=== PATIENT | female | born 1955 | race Caucasian/White ===

== ENCOUNTER 2016-05-19 22:02 | Inpatient (IN) | payer OTHER ==
[~2016-05-19] VITALS: Ht 160 cm; Wt 86.7 kg
[~2016-05-19 22:02] MED LIST: ALTOPREV40 MG PO; CLARITIN,ALAVAR10 MG PO; CLOPIDOGREL75 MG PO; FENOFIBRATE145 M1 PO; GLUCOPHAGE1000 MG PO; HYDROCHLOROTH12.5 M3 PO; LEVEMIR FL100 UNIT/1 SC; LEVEMIR100 UNIT/2 SC; LO-DOSE ASPIRIN81 M1 PO; METOPROLOL SUCC50 MG PO; MOTRIN800 MG PO; NOVOLOG 10100 UNITS/ SC; NOVOLOG PE100 UNITS/ SC; REGLAN10 MG PO; SANTYL30 GM TP; SINGULAIR10 MG PO; SYNTHROID75 MCG PO; TOPROL XL25 MG PO; VASOTEC20 MG PO; ZANTAC150 MG PO
[2016-05-19 22:23] LABS: POINT-OF-CARE METER ID UU13113778
[2016-05-19 23:24] LABS: HEMATOCRIT 34.9 % (36.0-46.0); MCHC 34.4 G/DL (30.0-36.0); MCV 78.4 FL (83-99); MEAN PLAT.VOLUME 11.9 uM^3 (9.5-12.4); PLATELET COUNT 272 K/uL (156-360); RBC DIS.WIDTH-CV 13.2 % (11.8-14.6); RBC DIS.WIDTH-SD 36.8 % (39-53); RED BLOOD COUNT 4.45 M/uL (3.80-5.20); WHITE BLOOD COUNT 13.4 K/uL (4.1-10.2)
[2016-05-19 23:44] LABS: TROP-I INTERPRETATION NEGATIVE; TROPONIN-I < 0.01 ng/mL (0.0-0.30)
[2016-05-20 00:24] LABS: CHLORIDE 97 mEq/L (99-109); POTASSIUM 4.3 mEq/L (3.7-5.4); SODIUM 133 mEq/L (136-147)
[2016-05-20 00:26] LABS: GLUCOSE 296 mg/dL (70-99)
[2016-05-20 00:28] LABS: ANION GAP 10 MEQ/L (2-14); TOTAL BILIRUBIN 0.2 mg/dL (0.0-1.0)
[2016-05-20 00:30] LABS: ALKALINE PHOSPHATASE 49 IU/L (3-129); GFR ESTIMATE (CALCULATED) 49 mL/min/
[2016-05-20 00:31] LABS: UREA NITROGEN (BUN) 16 mg/dL (9-23)
[2016-05-20 00:33] LABS: LIPASE 89 U/L (1.0-51.0)
[2016-05-20 02:43] LABS: POINT-OF-CARE METER ID UU13113702
[2016-05-20 05:26] LABS: POINT-OF-CARE METER ID UU13113675
[2016-05-20 12:11] LABS: POINT-OF-CARE METER ID UU13113675
[2016-05-20 13:13] VITALS: BP 147/66
[2016-05-20 15:52] VITALS: BP 153/65
[2016-05-20 16:34] LABS: POINT-OF-CARE METER ID UU14149397
[2016-05-20 19:37] VITALS: BP 148/68
[2016-05-21 00:38] VITALS: BP 177/70
[2016-05-21 01:51] LABS: POINT-OF-CARE METER ID UU14149397
[2016-05-21 05:56] LABS: MCH 26.6 PG (29.0-34.0); MCHC 32.7 G/DL (30.0-36.0); MCV 81.3 FL (83-99); MEAN PLAT.VOLUME 12.4 uM^3 (9.5-12.4); PLATELET COUNT 262 K/uL (156-360); RBC DIS.WIDTH-CV 14.3 % (11.8-14.6); RBC DIS.WIDTH-SD 42.3 % (39-53); RED BLOOD COUNT 3.69 M/uL (3.80-5.20); WHITE BLOOD COUNT 16.6 K/uL (4.1-10.2)
[2016-05-21 06:10] LABS: ANION GAP 9 MEQ/L (2-14); CHLORIDE 100 MEQ/L (99-109); GFR ESTIMATE (CALCULATED) 49 mL/min/; GLUCOSE 208 mg/dL (70-99); POTASSIUM 3.6 MEQ/L (3.7-5.4); SAMPLE HEMOLYSIS CHECK 0; SAMPLE ICTERIC CHECK 0; SAMPLE LIPEMIA CHECK 0; SODIUM 135 MEQ/L (136-147); UREA NITROGEN (BUN) 19 mg/dL (9-23)
[2016-05-21 07:01] LABS: POINT-OF-CARE METER ID UU14149397
[2016-05-21 08:00] VITALS: BP 139/61
[2016-05-21 11:43] LABS: POINT-OF-CARE METER ID UU14149397
[2016-05-21 16:15] VITALS: BP 130/61
[2016-05-21 17:51] LABS: POINT-OF-CARE METER ID UU13113717
[2016-05-21 20:01] VITALS: BP 145/60
[2016-05-21 23:30] VITALS: BP 176/73
[2016-05-21 23:57] LABS: POINT-OF-CARE METER ID UU13113717
[2016-05-22 03:33] VITALS: BP 158/74
[2016-05-22 05:18] LABS: HEMATOCRIT 26.6 % (36.0-46.0); MCH 26.8 PG (29.0-34.0); MCHC 33.1 G/DL (30.0-36.0); MCV 81.1 FL (83-99); MEAN PLAT.VOLUME 12.5 uM^3 (9.5-12.4); PLATELET COUNT 203 K/uL (156-360); RBC DIS.WIDTH-CV 13.7 % (11.8-14.6); RBC DIS.WIDTH-SD 39.4 % (39-53); RED BLOOD COUNT 3.28 M/uL (3.80-5.20); WHITE BLOOD COUNT 11.9 K/uL (4.1-10.2)
[2016-05-22 05:33] LABS: CHLORIDE 104 mEq/L (99-109); POTASSIUM 3.9 mEq/L (3.7-5.4); SODIUM 135 mEq/L (136-147)
[2016-05-22 05:34] LABS: GLUCOSE 200 mg/dL (70-99)
[2016-05-22 05:36] LABS: ANION GAP 5 MEQ/L (2-14)
[2016-05-22 05:38] LABS: GFR ESTIMATE (CALCULATED) 54 mL/min/
[2016-05-22 05:39] LABS: UREA NITROGEN (BUN) 14 mg/dL (9-23)
[2016-05-22 06:04] LABS: POINT-OF-CARE METER ID UU13113717
[2016-05-22 07:42] VITALS: BP 160/69
[2016-05-22 15:35] VITALS: BP 140/78
[2016-05-22 22:51] LABS: POINT-OF-CARE METER ID UU14188577
[2016-05-23] VITALS: BP 155/66
[2016-05-23 09:08] VITALS: BP 170/78
[2016-05-23 15:46] VITALS: BP 180/80
[2016-05-23 17:04] LABS: POINT-OF-CARE METER ID UU14188577
[2016-05-23 20:01] VITALS: BP 152/82
[2016-05-23 22:00] LABS: POINT-OF-CARE METER ID UU14188577
[2016-05-23 23:34] VITALS: BP 150/76
[2016-05-24 07:54] VITALS: BP 150/79
[2016-05-24 12:05] LABS: POINT-OF-CARE METER ID UU14188577
[2016-05-24 12:55] VITALS: BP 179/77
[2016-05-24 16:09] VITALS: BP 140/70
[2016-05-24 16:52] LABS: POINT-OF-CARE METER ID UU14188577
[2016-05-24 21:49] LABS: POINT-OF-CARE METER ID UU14188577
[2016-05-24 23:25] VITALS: BP 146/71
[2016-05-25 04:00] VITALS: BP 148/74
[2016-05-25 06:54] LABS: POINT-OF-CARE METER ID UU14149397
[2016-05-25 07:47] LABS: HEMATOCRIT 26.8 % (36.0-46.0); MCH 26.9 PG (29.0-34.0); MCHC 33.6 G/DL (30.0-36.0); MCV 80.2 FL (83-99); MEAN PLAT.VOLUME 11.8 uM^3 (9.5-12.4); PLATELET COUNT 263 K/uL (156-360); RBC DIS.WIDTH-CV 14.1 % (11.8-14.6); RBC DIS.WIDTH-SD 40.8 % (39-53); RED BLOOD COUNT 3.34 M/uL (3.80-5.20); WHITE BLOOD COUNT 10.3 K/uL (4.1-10.2)
[2016-05-25 08:06] VITALS: BP 152/84
[2016-05-25 11:51] VITALS: BP 138/68
[2016-05-25 11:55] LABS: POINT-OF-CARE METER ID UU14149397
[2016-05-25 15:39] VITALS: BP 168/70
[2016-05-25] MEDS ORDERED: TYLENOL REGULA325 MG PO (15:53)
[2016-05-25] MEDS ORDERED: FLORASTOR250 MG PO (15:56)
[2016-05-25] MEDS ORDERED: AUGMENTIN875 MG PO (15:56)
[2016-05-25 16:47] LABS: POINT-OF-CARE METER ID UU14149397
[2016-05-25 22:00] LABS: POINT-OF-CARE METER ID UU14188577
== END 2016-05-25 22:37 | disposition home or self-care (01) | DRG 340 ==
LOC: EME 22:02 → SDC 05-20 03:25 → 3EAST 05-20 05:05 → 2SOUTH 05-20 05:05 → 3EAST 05-20 12:47
PROVIDERS: Emergency Medicine; Thoracic Surgery (Cardiothoracic Vascular Surgery)
PROC: 0DTJ0ZZ Resection of Appendix, Open Approach (ICD-10-PCS; principal; 2016-05-20)
DX: K35.2 Acute appendicitis with generalized peritonitis (principal); E11.9 Type 2 diabetes mellitus without complications; I10 Essential (primary) hypertension
CPT/HCPCS: 71020; 74177; 80048; 80053; 81003; 82565; 82948; 83690; 84484; 84520; 85027; 87070; 87075; 87076; 87106; 87185; 87205; 88304; 93005; 94799; 97530 GP; 99281; 99285; J0330; J1100; J1170; J1644; J1815; J2405; J2543; J2550; J2710; J2765; J3010; J7030; J7050; J7120

== ENCOUNTER 2016-05-30 23:32 | Inpatient (IN) | payer OTHER ==
[~2016-05-30] VITALS: Ht 157.5 cm; Wt 87.4 kg
[~2016-05-30 23:32] MED LIST changes: +AUGMENTIN875 MG PO; +FLORASTOR250 MG PO; +TYLENOL REGULA325 MG PO
[2016-05-31] VITALS (8 sets, daily range): BP systolic 142–200; BP diastolic 59–88
[2016-05-31 00:29] LABS: HEMATOCRIT 29.4 % (36.0-46.0); MCH 26.6 PG (29.0-34.0); MCHC 33.7 G/DL (30.0-36.0); MEAN PLAT.VOLUME 11.8 uM^3 (9.5-12.4); PLATELET COUNT 399 K/uL (156-360); RBC DIS.WIDTH-CV 13.9 % (11.8-14.6); RBC DIS.WIDTH-SD 38.6 % (39-53); RED BLOOD COUNT 3.72 M/uL (3.80-5.20); WHITE BLOOD COUNT 25.9 K/uL (4.1-10.2)
[2016-05-31 00:36] LABS: CHLORIDE 98 mEq/L (99-109); POTASSIUM 3.6 mEq/L (3.7-5.4); SODIUM 132 mEq/L (136-147)
[2016-05-31 00:39] LABS: GLUCOSE 224 mg/dL (70-99)
[2016-05-31 00:40] LABS: ANION GAP 10 MEQ/L (2-14)
[2016-05-31 00:42] LABS: ALKALINE PHOSPHATASE 94 IU/L (3-129); GFR ESTIMATE (CALCULATED) > 59 mL/min/
[2016-05-31 00:43] LABS: UREA NITROGEN (BUN) 11 mg/dL (9-23)
[2016-05-31 00:49] LABS: LIPASE 8 U/L (1.0-51.0)
[2016-05-31 00:50] LABS: TOTAL BILIRUBIN 0.6 mg/dL (0.0-1.0)
[2016-05-31 02:03] LABS: ADD MIUA? YES; BILIRUBIN NEGATIVE; BLOOD NEGATIVE; COLOR YELLOW ((YELLOW)); GLUCOSE (STRIP) 50; KETONES NEGATIVE; LEUKOCYTES NEGATIVE; NITRITE NEGATIVE; PROTEIN (STRIP) >=500
[2016-05-31 02:19] LABS: BACTERIA RARE /HPF; EPITHELIAL CELLS 1+ /HPF; HYALINE CASTS 0-5 /LPF; MUCUS 1+ /LPF; RED BLOOD CELLS 0-5 /HPF (0-5); UCUL ADDED? NO; WHITE BLOOD CELLS 0-5 /HPF (0-5)
[2016-05-31 09:10] LABS: INTER. NORMALIZED RATIO 1.2; PROTHROMBIN TIME 11.9 (9.2-11.2); PTT 32.9 (25-32)
[2016-06-01] VITALS: BP 136/66
[2016-06-01 04:00] VITALS: BP 144/68
[2016-06-01 07:43] LABS: EOSINOPHIL (%) 0.1 % (0-5); HEMATOCRIT 24.6 % (36.0-46.0); IMMATURE GRANULOCYTE (%) 0.4 % (0.0-0.7); IMMATURE GRANULOCYTE COUNT 0.1 K/uL; LYMPHOCYTE COUNT 1.5 K/uL (1.0-2.8); MCH 26.2 PG (29.0-34.0); MCHC 33.3 G/DL (30.0-36.0); MCV 78.6 FL (83-99); MEAN PLAT.VOLUME 11.8 uM^3 (9.5-12.4); MONOCYTE (%) 6.4 % (3-12); MONOCYTE COUNT 1.5 K/uL (0-0.8); NEUTROPHIL (%) 86.4 % (45-76); PLATELET COUNT 378 K/uL (156-360); RBC DIS.WIDTH-CV 14.3 % (11.8-14.6); RBC DIS.WIDTH-SD 41.1 % (39-53); RED BLOOD COUNT 3.13 M/uL (3.80-5.20); WHITE BLOOD COUNT 23.1 K/uL (4.1-10.2)
[2016-06-01 08:12] VITALS: BP 183/74
[2016-06-01 12:11] VITALS: BP 180/74
[2016-06-01 15:35] VITALS: BP 182/75
[2016-06-01 22:50] VITALS: BP 168/69
[2016-06-02 07:50] LABS: HEMATOCRIT 23.8 % (36.0-46.0); MCH 26.7 PG (29.0-34.0); MCHC 33.6 G/DL (30.0-36.0); MCV 79.3 FL (83-99); MEAN PLAT.VOLUME 12.4 uM^3 (9.5-12.4); PLATELET COUNT 384 K/uL (156-360); RBC DIS.WIDTH-CV 14.3 % (11.8-14.6); RBC DIS.WIDTH-SD 41.5 % (39-53)
[2016-06-02 07:51] LABS: WHITE BLOOD COUNT 15.6 K/uL (4.1-10.2)
[2016-06-02 08:03] LABS: ANION GAP 11 MEQ/L (2-14); CHLORIDE 97 MEQ/L (99-109); GFR ESTIMATE (CALCULATED) > 59 mL/min/; GLUCOSE 171 mg/dL (70-99); POTASSIUM 3.8 MEQ/L (3.7-5.4); SAMPLE HEMOLYSIS CHECK 0; SAMPLE ICTERIC CHECK 0; SAMPLE LIPEMIA CHECK 0; SODIUM 133 MEQ/L (136-147); UREA NITROGEN (BUN) 13 mg/dL (9-23)
[2016-06-02 08:26] VITALS: BP 179/76
[2016-06-03 00:18] VITALS: BP 144/74
[2016-06-03 03:10] VITALS: BP 167/69
[2016-06-03 07:12] VITALS: BP 180/68
[2016-06-03 08:04] LABS: GFR ESTIMATE (CALCULATED) > 59 mL/min/
[2016-06-03 11:06] LABS: HEMATOCRIT 24.3 % (36.0-46.0); MCH 26.6 PG (29.0-34.0); MCHC 33.3 G/DL (30.0-36.0); MCV 79.7 FL (83-99); MEAN PLAT.VOLUME 12.1 uM^3 (9.5-12.4); PLATELET COUNT 407 K/uL (156-360); RBC DIS.WIDTH-CV 14.4 % (11.8-14.6); RBC DIS.WIDTH-SD 41.7 % (39-53); RED BLOOD COUNT 3.05 M/uL (3.80-5.20); WHITE BLOOD COUNT 12.3 K/uL (4.1-10.2)
[2016-06-03 11:24] LABS: ANION GAP 8 MEQ/L (2-14); CHLORIDE 98 MEQ/L (99-109); GLUCOSE 199 mg/dL (70-99); POTASSIUM 3.8 MEQ/L (3.7-5.4); SODIUM 134 MEQ/L (136-147); UREA NITROGEN (BUN) 9 mg/dL (9-23)
[2016-06-03 16:00] VITALS: BP 160/78
[2016-06-03 20:00] VITALS: BP 152/76
[2016-06-03 23:55] VITALS: BP 162/74
[2016-06-04 03:50] VITALS: BP 142/54
[2016-06-04 06:57] VITALS: BP 188/78
[2016-06-04 07:24] LABS: HEMATOCRIT 27.2 % (36.0-46.0); MCH 25.2 PG (29.0-34.0); MCV 78.8 FL (83-99); MEAN PLAT.VOLUME 11.6 uM^3 (9.5-12.4); PLATELET COUNT 488 K/uL (156-360); RBC DIS.WIDTH-CV 14.1 % (11.8-14.6); RBC DIS.WIDTH-SD 40.7 % (39-53); RED BLOOD COUNT 3.45 M/uL (3.80-5.20); WHITE BLOOD COUNT 12.2 K/uL (4.1-10.2)
[2016-06-04 07:42] LABS: ANION GAP 11 MEQ/L (2-14); CHLORIDE 96 MEQ/L (99-109); GFR ESTIMATE (CALCULATED) > 59 mL/min/; GLUCOSE 193 mg/dL (70-99); POTASSIUM 3.7 MEQ/L (3.7-5.4); SAMPLE HEMOLYSIS CHECK 0; SAMPLE ICTERIC CHECK 0; SAMPLE LIPEMIA CHECK 0; SODIUM 134 MEQ/L (136-147); UREA NITROGEN (BUN) 7 mg/dL (9-23)
[2016-06-04 15:29] VITALS: BP 142/61
[2016-06-04 23:53] VITALS: BP 142/66
[2016-06-05 05:01] LABS: C DIFF TOXIN NEGATIVE (NEGATIVE)
[2016-06-05 05:06] LABS: PROBE CHECK PASS; SPECIMEN PROCESSING CONTROL PASS
[2016-06-05 07:25] VITALS: BP 156/72
[2016-06-05 12:27] LABS: HEMATOCRIT 25.6 % (36.0-46.0); MCH 26.3 PG (29.0-34.0); MCHC 32.8 G/DL (30.0-36.0); MCV 80.3 FL (83-99); MEAN PLAT.VOLUME 11.7 uM^3 (9.5-12.4); PLATELET COUNT 458 K/uL (156-360); RBC DIS.WIDTH-CV 14.4 % (11.8-14.6); RBC DIS.WIDTH-SD 41.7 % (39-53); RED BLOOD COUNT 3.19 M/uL (3.80-5.20); WHITE BLOOD COUNT 12.3 K/uL (4.1-10.2)
[2016-06-05 13:25] LABS: ABS NEUTROPHIL COUNT 7.84; ANISOCYTOSIS OCC; EOSINOPHIL (%) 2.4 % (0-5); EOSINOPHIL ABS CT 0.49; EOSINOPHIL COUNT 0.3 K/uL (0-0.3); IMMATURE GRANULOCYTE (%) 5.3 % (0.0-0.7); IMMATURE GRANULOCYTE COUNT 0.7 K/uL; LYMPHOCYTE COUNT 1.8 K/uL (1.0-2.8); MACROCYTES OCC; MONOCYTE (%) 8.4 % (3-12); NEUTROPHIL (%) 68.8 % (45-76); NEUTROPHIL COUNT 8.4 K/uL (1.8-6.4); PLAT.SUFFICIENCY INCREASED
[2016-06-05 15:02] VITALS: BP 150/70
[2016-06-05 23:31] VITALS: BP 150/86
[2016-06-06 07:00] VITALS: BP 158/72
[2016-06-06 08:15] LABS: HEMATOCRIT 27.8 % (36.0-46.0); MCH 26.4 PG (29.0-34.0); MCHC 33.1 G/DL (30.0-36.0); MCV 79.9 FL (83-99); MEAN PLAT.VOLUME 11.6 uM^3 (9.5-12.4); PLATELET COUNT 495 K/uL (156-360); RBC DIS.WIDTH-CV 14.5 % (11.8-14.6); RED BLOOD COUNT 3.48 M/uL (3.80-5.20); WHITE BLOOD COUNT 12.6 K/uL (4.1-10.2)
[2016-06-06 15:40] VITALS: BP 148/68
[2016-06-06 16:25] VITALS: BP 129/61
[2016-06-06 23:30] VITALS: BP 128/73
[2016-06-07 07:25] VITALS: BP 148/60
[2016-06-07 12:20] VITALS: BP 168/78
[2016-06-07 15:40] VITALS: BP 148/70
[2016-06-07 23:16] VITALS: BP 160/70
[2016-06-08 06:53] LABS: HEMATOCRIT 27.5 % (36.0-46.0); MCH 25.3 PG (29.0-34.0); MCHC 31.3 G/DL (30.0-36.0); MCV 80.9 FL (83-99); MEAN PLAT.VOLUME 11.1 uM^3 (9.5-12.4); PLATELET COUNT 476 K/uL (156-360); RBC DIS.WIDTH-CV 14.6 % (11.8-14.6); RBC DIS.WIDTH-SD 42.9 % (39-53); WHITE BLOOD COUNT 9.1 K/uL (4.1-10.2)
[2016-06-08 08:08] VITALS: BP 160/68
[2016-06-08 12:05] VITALS: BP 134/60
[2016-06-08 15:15] VITALS: BP 158/60
[2016-06-09 00:01] VITALS: BP 122/48; BP 1228/48
[2016-06-09 07:56] VITALS: BP 194/72
[2016-06-09 14:10] VITALS: BP 156/82
[2016-06-09 16:38] LABS: POINT-OF-CARE METER ID UU13113675
[2016-06-09 18:35] VITALS: BP 135/57
[2016-06-09 19:25] VITALS: BP 138/62
[2016-06-09 23:03] VITALS: BP 145/65
[2016-06-10 04:12] VITALS: BP 128/64
[2016-06-10 06:46] LABS: POINT-OF-CARE METER ID UU14162508
[2016-06-10 07:40] LABS: ANION GAP 7 MEQ/L (2-14); CHLORIDE 102 MEQ/L (99-109); GFR ESTIMATE (CALCULATED) > 59 mL/min/; GLUCOSE 175 mg/dL (70-99); SAMPLE HEMOLYSIS CHECK 0; SAMPLE ICTERIC CHECK 0; SAMPLE LIPEMIA CHECK 0; SODIUM 136 MEQ/L (136-147); UREA NITROGEN (BUN) 9 mg/dL (9-23)
[2016-06-10 07:41] LABS: HEMATOCRIT 23.6 % (36.0-46.0); MCH 25.9 PG (29.0-34.0); MCHC 32.2 G/DL (30.0-36.0); MCV 80.5 FL (83-99); MEAN PLAT.VOLUME 11.2 uM^3 (9.5-12.4); PLATELET COUNT 356 K/uL (156-360); RBC DIS.WIDTH-CV 14.6 % (11.8-14.6); RBC DIS.WIDTH-SD 42.3 % (39-53); RED BLOOD COUNT 2.93 M/uL (3.80-5.20); WHITE BLOOD COUNT 13.3 K/uL (4.1-10.2)
[2016-06-10 08:10] VITALS: BP 150/68
[2016-06-10 11:34] LABS: POINT-OF-CARE METER ID UU14162508
[2016-06-10 16:10] VITALS: BP 134/66
[2016-06-11 00:05] VITALS: BP 128/68
[2016-06-11 06:27] LABS: POINT-OF-CARE METER ID UU14162508
[2016-06-11 07:04] VITALS: BP 142/58
[2016-06-11 10:50] VITALS: BP 150/66
[2016-06-11 15:34] VITALS: BP 168/74
[2016-06-11 17:07] LABS: POINT-OF-CARE USER ID STWLMB34
[2016-06-11 18:02] LABS: POINT-OF-CARE METER ID UU14162508; POINT-OF-CARE USER ID STWLMB34
[2016-06-11 23:34] VITALS: BP 150/67
[2016-06-12 06:36] LABS: POINT-OF-CARE METER ID UU14162508
[2016-06-12 07:21] VITALS: BP 158/60
[2016-06-12 08:09] LABS: HEMATOCRIT 25.1 % (36.0-46.0); MCH 25.6 PG (29.0-34.0); MCHC 31.9 G/DL (30.0-36.0); MCV 80.4 FL (83-99); MEAN PLAT.VOLUME 11.8 uM^3 (9.5-12.4); PLATELET COUNT 380 K/uL (156-360); RBC DIS.WIDTH-SD 43.9 % (39-53); RED BLOOD COUNT 3.12 M/uL (3.80-5.20)
[2016-06-12 08:10] LABS: WHITE BLOOD COUNT 8.9 K/uL (4.1-10.2)
[2016-06-12 10:41] VITALS: BP 164/62
[2016-06-12 11:50] LABS: POINT-OF-CARE METER ID UU14162508
[2016-06-12 15:31] VITALS: BP 138/64
[2016-06-12 23:29] VITALS: BP 142/65
[2016-06-13 08:00] VITALS: BP 145/67
[2016-06-13 11:27] LABS: POINT-OF-CARE METER ID UU14162508
[2016-06-13 12:00] VITALS: BP 140/79
[2016-06-13 15:25] VITALS: BP 162/79
[2016-06-13 23:41] VITALS: BP 171/75
[2016-06-14 07:05] VITALS: BP 141/66
[2016-06-14 16:18] VITALS: BP 170/90
[2016-06-14 23:36] VITALS: BP 126/58
[2016-06-15 06:50] LABS: POINT-OF-CARE METER ID UU14162508
[2016-06-15 08:10] VITALS: BP 143/67
[2016-06-15 11:46] LABS: POINT-OF-CARE METER ID UU14162508
[2016-06-15 12:11] VITALS: BP 142/66
[2016-06-15] MEDS ORDERED: FOLBEE PLUS TABL5 MG PO (15:33)
[2016-06-15] MEDS ORDERED: CHROMAGEN,1 CAPSULE PO (15:33)
[2016-06-15] MEDS ORDERED: ENDOCET 5-3251 EACH PO (15:33)
[2016-06-15] MEDS ORDERED: THERAGRAN1 TABLET PO (15:33)
[2016-06-15 16:12] LABS: POINT-OF-CARE METER ID UU14162508
[2016-06-15 16:15] VITALS: BP 142/65
[2016-06-15 23:18] VITALS: BP 114/53
[2016-06-16 06:41] LABS: POINT-OF-CARE METER ID UU14162508
[2016-06-16 08:13] VITALS: BP 118/57
[2016-06-16 11:37] LABS: POINT-OF-CARE METER ID UU14162508
== END 2016-06-15 15:38 | disposition home health service (06) | DRG 857 ==
LOC: EME 23:32 → EDOF 05-31 02:52 → 2EAST 05-31 02:52
PROVIDERS: Physical Medicine & Rehabilitation; Radiology Diagnostic Radiology; Surgery; Thoracic Surgery (Cardiothoracic Vascular Surgery)
PROC: 0W9F30Z Drainage of Abdominal Wall with Drainage Device, Percutaneous Approach (ICD-10-PCS; principal; 2016-05-31)
PROC: 0J980ZZ Drainage of Abdomen Subcutaneous Tissue and Fascia, Open Approach (ICD-10-PCS; 2016-06-09)
DX: T81.4XXA Infection following a procedure, initial encounter (principal); L02.211 Cutaneous abscess of abdominal wall; B95.4 Other streptococcus as the cause of diseases classified elsewhere; B96.89 Other specified bacterial agents as the cause of diseases classified elsewhere; D64.9 Anemia, unspecified; J45.909 Unspecified asthma, uncomplicated; I10 Essential (primary) hypertension; E11.40 Type 2 diabetes mellitus with diabetic neuropathy, unspecified; E66.9 Obesity, unspecified; Z68.35 Body mass index [BMI] 35.0-35.9, adult; Z88.5 Allergy status to narcotic agent; Z79.82 Long term (current) use of aspirin; Z87.891 Personal history of nicotine dependence
CPT/HCPCS: 10030; 74176; 74177; 80048; 80053; 81003; 82565; 82948; 83605; 83690; 84520; 85025; 85027; 85610; 85730; 87040; 87070; 87075; 87076; 87077; 87185; 87205; 87493; 99281; 99285; C1729; C1769; J1170; J1650; J1815; J2250; J2405; J2543; J2765; J3010; J3420; J7030; J7050; J7120; Q0169

== ENCOUNTER 2017-05-13 16:59 | Inpatient (IN) | payer OTHER ==
[~2017-05-13] VITALS: Ht 157.5 cm; Wt 85.1 kg
[~2017-05-13 16:59] MED LIST changes: -ALTOPREV40 MG PO; +CHROMAGEN,1 CAPSULE PO; +ENDOCET 5-3251 EACH PO; +FOLBEE PLUS TABL5 MG PO; +LOVASTATIN40 MG PO; +THERAGRAN1 TABLET PO
[2017-05-13 18:30] LABS: HEMATOCRIT 33.8 % (36.0-46.0); HEMOGLOBIN 11.8 G/DL (11.9-15.5); MCH 28.4 PG (29.0-34.0); MCHC 34.9 G/DL (30.0-36.0); MCV 81.4 FL (83-99); PLATELET COUNT 268 K/uL (156-360); RBC DIS.WIDTH-CV 12.5 % (11.8-14.6); RBC DIS.WIDTH-SD 37.2 % (39-53); RED BLOOD COUNT 4.15 M/uL (3.80-5.20); WHITE BLOOD COUNT 10.5 K/uL (4.1-10.2)
[2017-05-13 18:49] LABS: CHLORIDE 98 mEq/L (99-109); POTASSIUM 4.3 mEq/L (3.7-5.4); SODIUM 131 mEq/L (136-147)
[2017-05-13 18:50] LABS: GLUCOSE 172 mg/dL (70-99)
[2017-05-13 18:54] LABS: CREATININE 0.8 mg/dL (0.6-1.3); GFR ESTIMATE (CALCULATED) > 59 mL/min/
[2017-05-13 18:55] LABS: UREA NITROGEN (BUN) 15 mg/dL (9-23)
[2017-05-13 18:58] LABS: TROP-I INTERPRETATION INDETERMINATE; TROPONIN-I 0.42 ng/mL (0.0-0.30)
[2017-05-13 21:33] LABS: PTT 30.1 SEC (25-37)
[2017-05-13] MEDS ORDERED: PLAVIX75 MG PO (21:40)
[2017-05-13] MEDS ORDERED: TOPROL XL50 MG PO (21:42)
[2017-05-13] MEDS ORDERED: LEVEMIR FL100 UNIT/1 SC (21:44)
[2017-05-13] MEDS ORDERED: DAILY VALUE1 EACH PO (21:45)
[2017-05-13] MEDS ORDERED: EPIPEN ADU0.3 MG/0.3 IM (21:46)
[2017-05-13] MEDS ORDERED: IBUPROFEN800 MG PO (21:47)
[2017-05-13] MEDS ORDERED: GLUCOPHAGE XR,500 MG PO (21:47)
[2017-05-13] MEDS ORDERED: VITAMIN D32000 UNI1 PO (21:47)
[2017-05-13 23:23] LABS: INTER. NORMALIZED RATIO 1.1
[2017-05-13 23:36] LABS: TROP-I INTERPRETATION INDETERMINATE; TROPONIN-I 0.42 ng/mL (0.0-0.30)
[2017-05-14 00:13] VITALS: BP 188/95
[2017-05-14 00:51] LABS: PTT ND SEC (25-37)
[2017-05-14 05:49] VITALS: BP 145/65
[2017-05-14 06:59] LABS: HEMATOCRIT 28.7 % (36.0-46.0); MCH 28.4 PG (29.0-34.0); MCHC 34.1 G/DL (30.0-36.0); MCV 83.2 FL (83-99); PLATELET COUNT 201 K/uL (156-360); RBC DIS.WIDTH-CV 12.6 % (11.8-14.6); RBC DIS.WIDTH-SD 38.2 % (39-53); RED BLOOD COUNT 3.45 M/uL (3.80-5.20); WHITE BLOOD COUNT 9.5 K/uL (4.1-10.2)
[2017-05-14 07:05] LABS: TROP-I INTERPRETATION INDETERMINATE; TROPONIN-I 0.33 ng/mL (0.0-0.30)
[2017-05-14 07:06] LABS: HEMOGLOBIN 9.8 G/DL (11.9-15.5)
[2017-05-14 07:11] LABS: ALBUMIN 3.3 G/DL (3.2-4.8); ALKALINE PHOSPHATASE 47 IU/L (3-129); ALT (GPT) 14 IU/L (3-49); AST (GOT) 12 IU/L (2-34); CHLORIDE 98 MEQ/L (99-109); CREATININE 0.9 MG/DL (0.6-1.3); GFR ESTIMATE (CALCULATED) > 59 mL/min/; GLUCOSE 164 mg/dL (70-99); POTASSIUM 4.1 MEQ/L (3.7-5.4); SODIUM 134 MEQ/L (136-147); UREA NITROGEN (BUN) 18 mg/dL (9-23)
[2017-05-14 07:13] LABS: TOTAL BILIRUBIN 0.2 MG/DL (0.0-1.0); TOTAL PROTEIN 4.9 G/DL (6.4-8.3)
[2017-05-14 07:54] VITALS: BP 152/67
[2017-05-14] MEDS ORDERED: NITROPASTE 2%1 GM TD (15:22)
[2017-05-14] MEDS ORDERED: TYLENOL REGULA325 MG PO (15:23)
[2017-05-14 15:46] VITALS: BP 158/70
[2017-05-14 21:57] VITALS: BP 139/86
[2017-05-14 23:00] VITALS: BP 128/63
[2017-05-15 01:49] VITALS: BP 131/80
[2017-05-15 09:00] VITALS: BP 150/72
[2017-05-15 10:14] LABS: HEMATOCRIT 30.9 % (36.0-46.0); HEMOGLOBIN 10.3 G/DL (11.9-15.5); MCH 27.8 PG (29.0-34.0); MCHC 33.3 G/DL (30.0-36.0); MCV 83.3 FL (83-99); PLATELET COUNT 241 K/uL (156-360); RBC DIS.WIDTH-CV 12.9 % (11.8-14.6); RBC DIS.WIDTH-SD 39.1 % (39-53); RED BLOOD COUNT 3.71 M/uL (3.80-5.20); WHITE BLOOD COUNT 9.2 K/uL (4.1-10.2)
[2017-05-15 10:32] LABS: CHLORIDE 101 MEQ/L (99-109); POTASSIUM 4.7 MEQ/L (3.7-5.4); SODIUM 135 MEQ/L (136-147)
[2017-05-15 10:43] LABS: GFR ESTIMATE (CALCULATED) > 59 mL/min/; UREA NITROGEN (BUN) 19 mg/dL (9-23)
[2017-05-15 10:44] LABS: GLUCOSE 251 mg/dL (70-99)
[2017-05-15 12:00] VITALS: BP 179/74
[2017-05-15 17:55] VITALS: BP 167/74
== END 2017-05-15 19:17 | disposition short-term general hospital (02) | DRG 281 ==
LOC: EME 16:59 → EDOF 21:46 → 4EAST 21:46 → ENRESERV 21:50 → 4EAST 23:58
PROVIDERS: Emergency Medicine; Internal Medicine
DX: I21.4 Non-ST elevation (NSTEMI) myocardial infarction (principal); E87.1 Hypo-osmolality and hyponatremia; I16.1 Hypertensive emergency; I25.110 Atherosclerotic heart disease of native coronary artery with unstable angina pectoris; E11.51 Type 2 diabetes mellitus with diabetic peripheral angiopathy without gangrene; E11.42 Type 2 diabetes mellitus with diabetic polyneuropathy; D50.9 Iron deficiency anemia, unspecified; E03.9 Hypothyroidism, unspecified; E11.65 Type 2 diabetes mellitus with hyperglycemia; E78.00 Pure hypercholesterolemia, unspecified; E78.5 Hyperlipidemia, unspecified; I10 Essential (primary) hypertension; J45.909 Unspecified asthma, uncomplicated; K21.9 Gastro-esophageal reflux disease without esophagitis; I65.23 Occlusion and stenosis of bilateral carotid arteries; K29.60 Other gastritis without bleeding; F41.9 Anxiety disorder, unspecified; E66.9 Obesity, unspecified; G89.4 Chronic pain syndrome; Z79.4 Long term (current) use of insulin; Z82.49 Family history of ischemic heart disease and other diseases of the circulatory system; Z86.73 Personal history of transient ischemic attack (TIA), and cerebral infarction without residual deficits; Z87.891 Personal history of nicotine dependence; Z68.34 Body mass index [BMI] 34.0-34.9, adult; Z88.5 Allergy status to narcotic agent; Z88.2 Allergy status to sulfonamides
CPT/HCPCS: 36415; 71046; 80048; 80053; 82043; 82570; 82948; 83036; 83718; 84484; 85025; 85027; 85347; 85610; 85730; 93005; 99281; 99285; C1760; C1769; C1887; C1894; J0461; J1644; J1815; J2250; J2405; J2765; J3010

== ENCOUNTER 2017-08-18 05:28 | Inpatient (IN) | payer OTHER ==
[2017-08-18] VITALS (22 sets, daily range): BP systolic 125–204; BP diastolic 53–162
[~2017-08-18] VITALS: Ht 152.4 cm; Wt 82.0 kg
[~2017-08-18 05:28] MED LIST changes: +DAILY VALUE1 EACH PO; +EPIPEN ADU0.3 MG/0.3 IM; +GLUCOPHAGE XR,500 MG PO; +IBUPROFEN800 MG PO; +LASIX40 MG PO; +NITROPASTE 2%1 GM TD; +PLAVIX75 MG PO; +TOPROL XL50 MG PO; +VIBRAMYCIN100 MG PO; +VITAMIN D32000 UNI1 PO; +XARELTO15 MG PO
[2017-08-18 06:31] LABS: HEMATOCRIT 34.7 % (36.0-46.0); HEMOGLOBIN 11.7 G/DL (11.9-15.5); MCH 26.7 PG (29.0-34.0); MCHC 33.7 G/DL (30.0-36.0); PLATELET COUNT 315 K/uL (156-360); RBC DIS.WIDTH-CV 13.8 % (11.8-14.6); RBC DIS.WIDTH-SD 39.6 % (39-53); RED BLOOD COUNT 4.39 M/uL (3.80-5.20); WHITE BLOOD COUNT 12.1 K/uL (4.1-10.2)
[2017-08-18 06:54] LABS: CHLORIDE 96 MEQ/L (99-109); CREATININE 1.1 MG/DL (0.6-1.3); GFR ESTIMATE (CALCULATED) 53 mL/min/; GLUCOSE 114 mg/dL (70-99); POTASSIUM 4.2 MEQ/L (3.7-5.4); SODIUM 132 MEQ/L (136-147); UREA NITROGEN (BUN) 20 mg/dL (9-23)
[2017-08-18] MEDS ORDERED: METFORMIN HCL500 MG PO (07:00)
[2017-08-18] MEDS ORDERED: METFORMIN HCL500 M4 PO (07:02)
[2017-08-18] MEDS ORDERED: TRAMADOL HCL50 MG PO (11:37)
[2017-08-19] VITALS (15 sets, daily range): BP systolic 93–166; BP diastolic 48–91
== END 2017-08-19 16:22 | disposition home or self-care (01) | DRG 39 ==
LOC: SDC 05:28 → 4WEST 09:20 → 2SOUTH 09:20 → ENRESERV 09:24 → CANRESERV 09:24 → ENRESERV 09:25 → CANRESERV 09:27 → ENRESERV 09:27 → 2SOUTH 09:28 → ENRESERV 09:44 → 4WEST 10:56 → SDC 10:58 → 4WEST 08-19 16:22
PROVIDERS: Surgery
DX: I65.23 Occlusion and stenosis of bilateral carotid arteries (principal); E11.319 Type 2 diabetes mellitus with unspecified diabetic retinopathy without macular edema; E11.42 Type 2 diabetes mellitus with diabetic polyneuropathy; L89.890 Pressure ulcer of other site, unstageable; E07.9 Disorder of thyroid, unspecified; I10 Essential (primary) hypertension; I25.10 Atherosclerotic heart disease of native coronary artery without angina pectoris; E78.5 Hyperlipidemia, unspecified; E55.9 Vitamin D deficiency, unspecified; D64.9 Anemia, unspecified; J45.909 Unspecified asthma, uncomplicated; M48.00 Spinal stenosis, site unspecified; K21.9 Gastro-esophageal reflux disease without esophagitis; I25.2 Old myocardial infarction; Z95.1 Presence of aortocoronary bypass graft; Z96.651 Presence of right artificial knee joint; Z87.891 Personal history of nicotine dependence; Z79.01 Long term (current) use of anticoagulants; Z79.02 Long term (current) use of antithrombotics/antiplatelets; Z79.82 Long term (current) use of aspirin; Z79.84 Long term (current) use of oral hypoglycemic drugs; Z83.3 Family history of diabetes mellitus
CPT/HCPCS: 80048; 82948; 85027; 87641; 94799; J0690; J1100; J1644; J1650; J1815; J2250; J2405; J2550; J2710; J2720; J2765; J2795; J3010; J7120; J7643; Q0175; S0020